=== PATIENT | female | born 1950 | race Caucasian/White ===

== ENCOUNTER 2017-10-01 07:31 | Day surgery (SDC) | payer BC, MEDICARE, OTHER ==
[2017-10-01] MEDS ORDERED: Lactated Ringers 1,000 ML IV SCH (08:45)
[2017-10-01] MEDS ORDERED: Propofol 200 MG/20 ML SDV IV ONE (10:00)
[2017-10-01] MEDS ORDERED: Midazolam 1 MG/ML 2 ML SDV IV ONE (10:00)
--- NOTE | 2017-10-01 10:34 | PCM.OPNOTE ---
- General Post-Op/Procedure Note Date of Surgery/Procedure: 10/01/17 Operative Procedure(s): c scope with bx Findings: cecal polyps x4 sigmoid diverticulosis Pre Op Diagnosis: hx of colon polyp Post-Op Diagnosis: cecal polyps x4. sigmoid diverticulosis Anesthesia Technique: MAC Primary Surgeon: Eliud Fallon Anesthesia Provider: Emmanuel Boone Pathology: cecal polyps Complications: None Condition: Good Free Text/Narrative:: see dictation #[id number]
--- NOTE | 2017-10-01 13:30 | OR ---
DATE OF OPERATION: 10/01/2017 SURGEON: Eliud Fallon MD PROCEDURES PERFORMED: Colonoscopy with cold forceps biopsy. PREOPERATIVE DIAGNOSIS: Personal history of colon polyps. POSTOPERATIVE DIAGNOSES: Cecal polyps x4 and sigmoid diverticulosis. INDICATIONS FOR PROCEDURE: This is a 66-year-old white female who presents for a 5-year followup. She had a rectal polyp removed 5 years ago, which was adenomatous. She presents now for colonoscopy. DESCRIPTION OF PROCEDURE: After an excellent IV sedation was administered, digital rectal exam was performed. No marked abnormality was noted. Flexible colonoscope was inserted and advanced to the cecum without difficulty. The following findings were noted. In the cecum, 4 small polyps were encountered ranging from 1 to 2 mm in size. These were all biopsied and submitted in one container. The remainder of the ascending colon was unremarkable. Transverse colon was unremarkable. Descending colon was unremarkable. Sigmoid, scattered diverticulosis. Rectum and anus, unremarkable. Colon was deflated as the scope was removed. The patient tolerated the procedure well and was taken to Recovery in a good condition. Results by letter. /[id number] /MODL
== END 2017-10-01 11:45 | disposition home or self-care (01) ==
LOC: FB.SDS 07:31
PROVIDERS: ATTEND Surgery
DX: Z12.11 Encounter for screening for malignant neoplasm of colon (principal); D12.0 Benign neoplasm of cecum; K57.30 Diverticulosis of large intestine without perforation or abscess without bleeding; I10 Essential (primary) hypertension; E66.01 Morbid (severe) obesity due to excess calories; Z68.42 Body mass index [BMI] 45.0-49.9, adult; E78.5 Hyperlipidemia, unspecified; Z86.010 Personal history of colon polyps; Z79.899 Other long term (current) drug therapy
CPT/HCPCS: 88305; J2250; J2704; J7120

== ENCOUNTER 2023-03-03 06:36 | Day surgery (SDC) | payer MEDICARE, OTHER ==
[~2023-03-03 06:36] MED LIST: Lactated Ringers 1,000 ML IV SCH; Sodium Chloride 0.9% 10 ML Syringe FLUSH PRN
[2023-03-03] MEDS ORDERED: Propofol 200 MG/20 ML SDV IV ONE (06:37)
[2023-03-03] MEDS ORDERED: Simethicone Drops 40 MG/0.6 ML 30 ML Bottle ONE (07:51)
== END 2023-03-03 09:37 | disposition home or self-care (01) ==
LOC: FB.SDS 06:36
PROVIDERS: ATTEND Surgery
DX: Z12.11 Encounter for screening for malignant neoplasm of colon (principal); D12.0 Benign neoplasm of cecum; D12.6 Benign neoplasm of colon, unspecified; K57.30 Diverticulosis of large intestine without perforation or abscess without bleeding; E78.5 Hyperlipidemia, unspecified; L82.1 Other seborrheic keratosis; I10 Essential (primary) hypertension; E66.01 Morbid (severe) obesity due to excess calories; Z79.82 Long term (current) use of aspirin; Z79.899 Other long term (current) drug therapy
CPT/HCPCS: 00811; 88305; 99100; A9270-GY; J2704; J7120